=== PATIENT | female | born 1980 | race Caucasian/White ===

== ENCOUNTER → 2016-12-15 | Outpatient (CLI) | payer BC ==
[~2016-12-15] MED LIST: IBUP600T44 PO; PRENTAB26
== END | disposition home or self-care (01) ==
LOC: C.PAPS 11:48
PROVIDERS: ATTEND Obstetrics & Gynecology
DX: Z01.419 Encounter for gynecological examination (general) (routine) without abnormal findings (principal)

== ENCOUNTER → 2018-01-04 | Outpatient (CLI) | payer BC ==
--- NOTE | 2018-01-04 15:04 | MAMMOGRAPHY REPORT ---
BILATERAL DIGITAL DIAGNOSTIC MAMMOGRAM TOMOSYNTHESIS WITH CAD AND TARGETED BILATERAL ULTRASOUND: 2017 CLINICAL HISTORY: 37-year-old woman presents with a lump in the left breast. She has noticed the lum p for approximately one year but he became very sore a few weeks ago. No skin changes or nipple disc harge. Family history of breast cancer = great aunt. Baseline exam. TECHNIQUE: Bilateral breast tomosynthesis in addition to standard 2D mammography was performed. Curre nt study was also evaluated with a Computer Aided Detection (CAD) system. COMPARISON: No prior exams were available for comparison. BREAST COMPOSITION: The tissue of both breasts is heterogeneously dense, which may obscure small mas ses. FINDINGS: A triangle shaped palpable marker overlies the 2:00 to 3:00 middle one third of the left br east, denoting the lump pointed out by the patient. In the area of palpable concern in the approxima te 3:00 left breast, there is a 2 cm circumscribed round mass. No evidence of architectural distorti on or associated microcalcification. No other obvious mass, asymmetry, area of architectural distort ion or suspicious calcifications are identified in the left breast. There are 2 possible circumscrib ed masses in the right breast at approximately 12:00 and 9:00. No area of architectural distortion o r suspicious calcifications identified in the right breast. Further evaluation with ultrasound was p erformed bilaterally. Targeted ultrasound was performed in the area of palpable lump pointed out by the patient, in the 2:3 0 left breast, 5 cm from the nipple, and also throughout the right lateral breast. In the area of pa lpable concern, 2:30 left breast, 5 cm from the nipple, there are 2 abutting anechoic benign simple c ysts with posterior acoustic enhancement, measuring 2.1 x 1.4 x 1.8 cm in conglomerate. These cysts are benign and no further workup is needed at this time, they correlate as palpated. In the 12:00 ri ght breast, 3 cm from the nipple, there is an oval parallel circumscribed anechoic benign simple cyst measuring 1.3 x 0.8 x 1.6 cm, correlating with the circumscribed mass in the 12:00 axis, other small er scattered cysts are seen throughout the lateral right breast, with the next largest cyst in the 10 :00 right breast, 5 cm from the nipple, measuring 0.6 x 0.5 x 0.5 cm. No suspicious solid mass is id entified in the lateral right breast on targeted ultrasound. IMPRESSION: ACR BI-RADS CATEGORY 2: BENIGN, TARGETED ULTRASOUND ACR BI-RADS CATEGORY 2: BENIGN 1. The palpable lump in the 2:00 left breast correlates with 2 abutting benign anechoic simple cysts on ultrasound. There is no targeted sonographic evidence of malignancy in the left breast. 2. Other scattered anechoic benign cysts are seen in the right breast on targeted ultrasound as well , compatible with benign fibrocystic change. 3. Overall, no mammographic or targeted sonographic evidence of malignancy. Recommend continued cli nical monitoring as well as routine screening mammography, once age-appropriate. These results and recommendations were discussed with the patient at the time of the exam. Approximately 10% of breast cancers are not detected with mammography. A negative mammographic report should not delay biopsy if a clinically suggestive mass is present. Madie Fraser M.D. ay/:01/04/2018 10:59:08 Punch Machine Operator: Talisha WOOD(Justo)([place]), [facility] letter sent: Normal 1/2 BI-RADS Code: ACR BI-RADS Category 2: Benign Ultrasound BI-RADS: ACR BI-RADS Category 2: Benign
== END | disposition home or self-care (01) ==
LOC: C.MAMM 09:55
PROVIDERS: ATTEND Physician Assistant
DX: N63.21 Unspecified lump in the left breast, upper outer quadrant (principal); N60.02 Solitary cyst of left breast